=== PATIENT | female | born 1985 | race Caucasian/White ===

== ENCOUNTER 2017-06-10 07:57 | Emergency (ER) | payer MEDICAID ==
[2017-06-10 08:16] VITALS: BP 117/84
--- NOTE | 2017-06-10 08:43 | UC ---
Complaint Female HPI - HPI Summary HPI Summary: 2 DAYS OF URINARY BURNING, FREQUENCY AND URGENCY. NOW HAS SOME RIGHT LOW BACK PAIN, NO FEVER OR NAUSEA. - History Of Current Complaint Chief Complaint: [facility] Stated Complaint: BURNING FREQUENT URINATION Time Seen by Provider: 06/10/17 08:07 Hx Obtained From: Patient Hx Last Menstrual Period: 05/19/17 Onset/Duration: Gradual Onset, Lasting Days, Still Present Severity Initially: Moderate Severity Currently: Moderate Pain Intensity: 7 Pain Scale Used: 0-10 Numeric Character: Burning Aggravating Factor(s): Urination Alleviating Factor(s): Nothing Associated Signs And Symptoms: Positive: Back Pain. Negative: Fever, Nausea, Vomiting(# Of Episodes =), Genital Swelling, Genital Blisters - Allergies/Home Medications Allergies/Adverse Reactions: Allergies Allergy/AdvReac Type Severity Reaction Status Date / Time Latex Allergy IRRITATION Verified 06/10/17 08:08 Home Medications: Home Medications Lactobacillus [Probiotic] 1 cap PO 06/10/17 [History] Multiple Vitamins W/ Minerals [Multivitamin Adults] 1 tab PO 06/10/17 [History Confirmed 06/10/17] PMH/Surg Hx/FS Hx/Imm Hx Previously Healthy: Yes - Surgical History Surgical History: Yes Surgery Procedure, Year, and Place: LOCAL- WISDOM TEETH. LOCAL FOR EYE- STITCH PLACED. thumb repair 2013 - Family History Known Family History: Positive: Hypertension - Social History Alcohol Use: Rare Substance Use Type: None Smoking Status (MU): Never Smoked Tobacco Review of Systems Constitutional: Negative Respiratory: Negative Cardiovascular: Negative Gastrointestinal: Abdominal Pain Genitourinary: Dysuria, Frequency, Urgency All Other Systems Reviewed And Are Negative: Yes Physical Exam Triage Information Reviewed: Yes Appearance: Well-Appearing, No Pain Distress, Well-Nourished Vital Signs: Initial Vital Signs Temp 97.8 F 06/10/17 08:09 Pulse 88 06/10/17 08:09 Resp 18 06/10/17 08:09 BP 117/84 06/10/17 08:09 Pulse Ox 98 06/10/17 08:09 Vital Signs Reviewed: Yes Eyes: Positive: Conjunctiva Clear ENT: Positive: Hearing grossly normal Neck: Positive: Supple Respiratory: Positive: No respiratory distress, No accessory muscle use Cardiovascular: Positive: Pulses Normal Abdomen Description: Positive: Soft, Other: - MILDLY TENDER SUPRAPUBIC. Negative: CVA Tenderness (R), CVA Tenderness (L), Distended, Guarding Musculoskeletal: Positive: No Edema Neurological: Positive: Alert Psychological: Positive: Age Appropriate Behavior Skin: Negative: rashes Diagnostics - Laboratory Diagnostic Studies Completed/Ordered: URINE DIP SP. GR. 1.015, 3+ LEUKS, 2+ BLOOD, 2+ PROTEIN. URINE HCG NEG Complaint Female Dx - Differential Dx/Diagnosis Provider Diagnoses: UTI Discharge - Discharge Plan Condition: Stable Disposition: HOME Prescriptions: Sulfamethox/Trimethoprim DS* [Bactrim DS 800/160 TAB*] 1 tab PO BID #10 tab Patient Education Materials: Urinary Tract Infection in Women (ED) Referrals: Louie Crane MD [Primary Care Provider] - If Needed
== END 2017-06-10 08:40 | disposition home or self-care (01) ==
LOC: UCEAST 07:57
DX: N39.0 Urinary tract infection, site not specified (principal); Z32.02 Encounter for pregnancy test, result negative; Z91.040 Latex allergy status
CPT/HCPCS: 81003; 84702; 87077; 87086; 99212; G0463